=== PATIENT | male | born 1985 | race Caucasian/White ===

== ENCOUNTER → 2017-06-09 | Outpatient (CLI) | payer OTHER | LOC: BRMIMAGING 11:11 | PROVIDERS: ATTEND Family Medicine | DX: R10.31 Right lower quadrant pain (principal) | CPT/HCPCS: 76705-PO ==

== ENCOUNTER → 2017-08-15 | Outpatient (CLI) | payer OTHER | LOC: BRMIMAGING 13:52 | PROVIDERS: ATTEND Family Medicine | DX: R22.1 Localized swelling, mass and lump, neck (principal); M54.2 Cervicalgia; R13.10 Dysphagia, unspecified ==